=== PATIENT | female | born 1940 | race Caucasian/White ===

== ENCOUNTER 2017-04-02 05:59 | Inpatient (IN) | payer MEDICARE, OTHER ==
[2017-04-02] MEDS ORDERED: TRANEXAMIC ACID 1,000 MG in NORMAL SALINE 100 ML IV PRN (06:00)
[2017-04-02] MEDS ORDERED: MORPHINE SULFATE 15 MG TABLET.SA PO PRN (06:00)
[2017-04-02] MEDS ORDERED: RINGER'S SOLUTION,LACTATED 1,000 ML IV PRN (06:00)
[2017-04-02] MEDS ORDERED: ceFAZolin SODIUM 1 GM VIAL IV PRN (06:00)
[2017-04-02] MEDS ORDERED: ROPIVACAINE HCL/PF 100 MG, KETOROLAC TROMETHAMINE 30 MG, EPINEPHrine 0.2 MG in NORMAL S... IJ PRN (06:00)
[2017-04-02] MEDS ORDERED: RINGER'S SOLUTION,LACTATED 1,000 ML IV ONE ×3 (07:40→09:05)
[2017-04-02] MEDS ORDERED: MAGNESIUM HYDROXIDE 30 ML UDC PO PRN (09:58)
[2017-04-02] MEDS ORDERED: ACETAMINOPHEN 500 MG TABLET PO PRN (09:58)
[2017-04-02] MEDS ORDERED: MAG HYDROX/ALUMINUM HYD/SIMETH 30 ML UDC PO PRN (09:58)
[2017-04-02] MEDS ORDERED: ONDANSETRON HCL/PF 2 MG/ML VIAL IV PRN (09:58)
[2017-04-02] MEDS ORDERED: diphenhydrAMINE HCL 50 MG/ML VIAL IV PRN (09:58)
[2017-04-02] MEDS ORDERED: ZOLPIDEM TARTRATE 5 MG TABLET PO PRN (09:58)
[2017-04-02] MEDS ORDERED: HYDROmorphone HCL 1 MG/ML DISP.SYRIN IV PRN (09:58)
[2017-04-02] MEDS ORDERED: ALBUTEROL SULFATE/IPRATROPIUM 3 ML NEBU IH PRN (10:02)
[2017-04-02] MEDS ORDERED: ALPRAZolam 0.25 MG TABLET PO PRN (10:02)
[2017-04-02] MEDS ORDERED: TEMAZEPAM 15 MG CAPSULE PO PRN (10:02)
--- NOTE | 2017-04-02 10:05 | POSTOP NO ---
Date of Surgery: 04/02/17 Anesthesia: Spinal, regional, local Patient Tolerated the Procedure: Well Post Operative Diagnosis/Procedures: Metal Handler: Sabino Michael PA-C Post-operative Diagnosis: Right knee degenerative joint disease Finding: Above Procedure: Right total knee arthroplasty Estimated Blood Loss: Minimal Specimens: Bone for disposal
--- NOTE | 2017-04-02 10:06 | OR ---
Operative Report - Dictated Report Narrative: Date: 04/02/2017 Preoperative diagnosis: Right Knee degenerative joint disease. Postoperative diagnosis: Right Knee degenerative joint disease. Procedure: Right Total knee arthroplasty. Surgeon: Oz Rodgers M.D. Youth Development Professional: Sabino Michael PA-C Anesthesia: Spinal with regional block and local periarticular joint injection. Complications: None Specimens: Bone for disposal. Estimated blood loss: Minimal. Tourniquet time: 90 Minutes at 325 millimeters of mercury. Retained implants: Depuy Attune size 6 narrow right lugged cemented posterior stabilized femoral component. Size 6 fixed-bearing cemented tibial platform. 6 by 5 millimeter posterior stabilized cross-linked tibial insert. 38 millimeter medialized patella button. Indications: Mrs. Ramirez is a 76-year-old female who has had long-standing right knee pain and arthrosis. This patient was followed in my clinic for period of time with significant complaints of right knee pain consistent with arthritic changes. She had failed conservative measures including, but not limited to, activity modification, passage of time, medications, and other conservative measures. Patient wished to proceed with surgical treatment. The risks, benefits, and alternatives were discussed in clinic. The risks of , blood clots, bleeding, infection, nerve/tendon blood vessel/ injury, malposition of components, intraoperative fracture, postoperative limited range of motion, persistent pain, failure of components, and need for additional procedures. Patient wished to proceed consent was obtained after answering all questions. Procedure: After marking the correct extremity on the floor, the patient was taken to the operating room. A timeout was performed. IV antibiotics consisting of Ancef were administered prior to the procedure. A regional followed by spinal anesthetic was induced by anesthesia, per my request, on the operative table with all bony prominences well-padded. Dahl catheter was placed, and a bump was placed under the operative side buttock. SCDs and LOUANN hose were utilized on the nonoperative leg. A well-padded tourniquet was applied to the operative thigh. The operative leg was then pre-scrubbed with alcohol prepped, and draped in a standard sterile fashion. After exsanguinating the extremity with an Esmarch bandage, the tourniquet was inflated. After marking out the anterior knee for standard incision centered over the patella, the skin was incised and dissected down to the joint retinaculum. The joint retinaculum was marked out as well as the horizontal axis of the patella, and a standard medial parapatellar arthrotomy was then made. The most proximal aspect of the quadriceps tendon and the patella tendon insertion were protected from release. A partial synovectomy was performed as well as a resection of the infrapatellar fat pad. The distal femoral fat pad proximal to the trochlea was also resected using cautery. The soft tissues were elevated off the medial aspect of the proximal tibia using a Isaac elevator ensuring that we did not transect the medial collateral ligament. Upon initial evaluation range of motion was approximately 0 degrees to 120 degrees of flexion. There were signs of advanced arthrosis in the medial and patellofemoral joint spaces. There were large marginal osteophytes which were removed with a rongeur. The knee was hyperflexed and the patella was tucked laterally. Protecting the surrounding soft tissues with Homans, an entry drill was placed down the femoral canal using Whitesides line for guidance into the entry point. The intramedullary femoral alignment chad was utilized in order to cut the distal femur in 5 degrees of valgus resecting 10 millimeters of bone. Next the distal femur was sized to a size 6. A posterior referencing guide was utilized to place the distal femoral cutting block in 3 degrees of external rotation. This was pinned into place. The rotation was confirmed both visually and based on anatomic landmarks. The 4 in 1 cutting jig of the appropriate size was utilized in order to make all bony cuts. The angle wing was used to ensure no notching. Retractors were utilized in order to protect surrounding soft tissues. This cut did not result in any excessive notching. We then cut the box centered over the distal femur. This allowed for resection of the anterior and posterior cruciate ligaments. I then turned my attention to the preparation of the tibia. Using an extra medullary tibial alignment chad, 2 millimeters of bone was resected off the medial articular surface. This was made perpendicular to the mechanical axis of the joint with the alignment chad centered over the ankle mortise. The alignment chad was checked and was noted to be parallel to the mechanical axis, centered over the medial one third of the tibial tubercle, paralleling the anterior surface of the tibia. We then turned our attention to the remaining meniscus and soft tissues. These were removed while protecting the surrounding ligaments and soft tissues. The marginal osteophytes off the anterior, posterior, medial, lateral aspects of the femur and tibia were removed. The tibia was sized out to a size 6. Next the tibia was drilled and punched in an externally rotated position. Next the trial femur and a series of tibial inserts were utilized in order to allow for full extension and maximal flexion. It was found that a 5 millimeter insert gave the best range of motion and stability at multiple flexion points as well as at full extension there was less than 2 mm of gapping both medially and laterally. There is minimal anterior translation with the knee at 90 degrees of flexion and no signs of being able to dislocate the knee. The patella was then prepared. The initial thickness was 21 millimeters. This was reamed down to 12 millimeters parallel to the anterior surface of the patella. It was sized out to a size 38 medialized patella button. This was then drilled and trialed. Without any medial restraint the patella tracked appropriately and did not sublux or dislocate. At this point, it was felt these were the appropriate sized implants, and all trials were removed. The standard periarticular joint injection consisting of ropivacaine, Toradol, and epinephrine were injected into the periarticular joint tissues. The bony surfaces were thoroughly irrigated with a pulsatile- suction saline irrigation device. A bone plug from the prior resected anterior chamfer cut was placed into the drill hole at the distal femur. The bony surfaces were then dried in preparation for placement of the implants. The cement was vacuum mixed per the lace roller operator's instructions. The cement was placed on the dry bony surfaces and posterior aspect of the implants. The implants were impacted into place, removing all extruded cement. At this point anesthesia administered tranexamic acid per protocol intravenously. The knee was placed in extension with axial loading with the trial insert while the cement cured. Once the cement cured, all remaining extruded cement was removed. The knee was placed through a range of motion with the trial insert to ensure appropriate range of motion and stability. Final range of motion was approximately 0 to 120 degrees. The knee was again thoroughly irrigated with pulsatile saline lavage. The final polyethylene insert was then impacted into place ensuring no retained soft tissues. The remaining periarticular joint injection was injected. A medium Hemovac drain was placed exiting superior laterally. The knee was then placed over a triangle and the arthrotomy was closed with interrupted #1 Vicryl after thoroughly irrigating the joint. The deep and subcutaneous tissues were closed with interrupted 0 and 3-0 Vicryl respectively. Skin was closed with a running subcutaneous 3-0 Monocryl and Prineo Dermabond dressing. 4 x 4's, Sof-Rol, and a full leg Suleiman wrap were applied. All sponge, needle, blade, and instrument counts were correct prior to closing the wounds. Postoperative condition: The patient was awoken and transferred to the postanesthesia care unit in stable condition. Plan is to be admitted to the inpatient medical/surgical floor postoperatively for 24 hours of IV antibiotics , physical therapy, occupational therapy, and medical comanagement. Patient will be weightbearing as tolerated with range of motion as tolerated. DVT prophylaxis will be with SCDs, LOUANN hose, and pharmacological anticoagulation. Anticipated hospital stay is approximately 2-4 days.
--- NOTE | 2017-04-02 10:20 | OR ---
Anesthesia Procedure Note - Anesthesia Procedure Note Date of Service: 04/02/17 Narrative: Vital Signs - Last Taken Temp 36.3 C L 04/02/17 10:15 Pulse 72 04/02/17 10:15 Resp 16 04/02/17 10:15 BP 138/47 04/02/17 10:15 Pulse Ox 95 04/02/17 10:15 O2 Oxygen Delivery Method Room Air 04/02/17 10:19 ANESTHESIA PROCEDURE NOTE Date of Procedure: 04/02/2017. Time of procedure: 739. Performed by: Braden Anaya CRNA [place] Examiner: None. Preprocedure diagnosis: Degenerative joint disease right knee. Post procedure diagnosis: Same. Procedure: Right ultrasound guided femoral block for postoperative analgesia. Indications: The patient is a 76 -year-old female, who is requesting right ultrasound-guided femoral nerve block for postoperative analgesia related to right total knee arthroplasty. Findings: See below. Details of the procedure: The tissue over the intended target site was cleansed with ChloraPrep. 1 ml Lidocaine 1 % was infiltrated to the skin and subcutaneous tissue. Under sterile technique and ultrasound guidance a 21-gauge block needle was inserted anterior to the right femoral nerve . 20 mL's of 0.5 % bupivacaine was injected after negative aspiration for blood. Needle tip and spread of local anesthetic surrounding the femoral nerve was observed throughout the injection with realtime ultrasound visualization. The needle was removed intact. No complications were noted. The images were retained in the Hospital medical database . EBL: Minimal. Fluids: N/A. Specimen: N/A. Post procedure condition: The patient tolerated the procedure well. No complications were noted. Thank you for this consultation. Braden Anaya CRNA
[2017-04-02] MEDS: DEXTROSE 5%-LACTATED RINGERS 1,000 ML IV PRN ×2 (10:53→19:14)
[2017-04-02] MEDS: KETOROLAC TROMETHAMINE 15 MG/ML VIAL IV SCH ×3 (10:54→22:44)
[2017-04-02] MEDS: DILTIAZEM HCL 60 MG TABLET PO SCH ×2 (13:47→20:10)
[2017-04-02] MEDS: FLUoxetine HCL 20 MG CAPSULE PO SCH ×2 (13:47→17:14)
[2017-04-02] MEDS: FUROSEMIDE 40 MG TABLET PO SCH (17:14)
[2017-04-02] MEDS: oxyCODONE HCL/ACETAMINOPHEN 1 TAB TABLET PO PRN ×2 (17:14→21:52)
[2017-04-02] MEDS: ALBUTEROL SULFATE 2.5 MG/0.5 ML VIAL.NEB IH SCH (19:31)
[2017-04-02] MEDS: PANTOPRAZOLE SODIUM 40 MG TABLET.EC PO SCH (20:10)
[2017-04-02] MEDS: rOPINIRole HCL 1 MG TABLET PO SCH (20:10)
[2017-04-02] MEDS: MORPHINE SULFATE 15 MG TABLET.SA PO SCH (20:10)
[2017-04-02] MEDS: SENNOSIDES/DOCUSATE SODIUM 1 TAB TABLET PO SCH (20:11)
[2017-04-02] MEDS: SIMVASTATIN 40 MG TABLET PO SCH (20:11)
[2017-04-02] MEDS: MONTELUKAST SODIUM 10 MG TABLET PO SCH (20:11)
[2017-04-03] MEDS: KETOROLAC TROMETHAMINE 15 MG/ML VIAL IV SCH ×4 (04:04→23:06)
[2017-04-03 06:09] LABS: Hemoglobin 10.4 gm/dL (12.5-16.0); Mean Cell Volume 90.1 fl (78-100); Mean Corpuscular Hemoglobin 30.2 pg (27-31); Mean Corpuscular Hgb Conc 33.5 g/dl (32-36); Mean Platelet Volume 10.2 fl (6.0-9.5); Platelet Count 241 K/mm3 (150-450); Red Blood Count 3.44 M/mm3 (4.2-5.4); Red Cell Distribution Width 13.4 % (11.5-14.0); White Blood Count 7.8 K/mm3 (4.0-10.5)
[2017-04-03 06:17] LABS: Anion Gap 10.3 mmol/L (6.8-13.8); BUN/Creatinine Ratio 16.5 (9.0-21.6); Calcium * 8.5 mg/dL (7.9-10.9); Carbon Dioxide 28.8 mmol/L (24-32.6); Estimated Creat Clear 45.2; Potassium 4.1 mmol/L (3.4-4.6)
[2017-04-03] MEDS: ALBUTEROL SULFATE 2.5 MG/0.5 ML VIAL.NEB IH SCH ×2 (06:27→18:05)
[2017-04-03] MEDS: DILTIAZEM HCL 60 MG TABLET PO SCH ×3 (07:31→20:26)
[2017-04-03] MEDS: PANTOPRAZOLE SODIUM 40 MG TABLET.EC PO SCH ×2 (07:33→20:25)
--- NOTE | 2017-04-03 08:07 | PN ---
Subjective - Date and Time Seen Date: 04/03/17 Time: 08:04 Subjective Narrative: Subjective: Reports difficulty sleeping but not related to pain. Was able to get up to the chair with therapy. Pain is well-controlled. Tolerating by mouth intake. Denies any nausea or vomiting. Denies calf pain. Physical exam: Alert and oriented to person, place and time Right lower Extremity: Palpable dorsalis pedis pulse. Sensation grossly intact to light touch. Dressings clean and dry. Able to flex and extend ankle and toes. No excessive drainage. Calf and thigh are soft and nontender. Assessment: Postop day 1 status post right total knee arthroplasty. Plan: Due to the need for pain control, post-operative limited mobility, protection of the surgical site and joint, monitoring of the wound, and the management of chronic medical conditions, she requires continued inpatient care. Continue with physical and occupational therapy weightbearing as tolerated. Continue with anticoagulation. 24 hours postoperative prophylactic antibiotics. Pain control with goal to rely on oral medications. Continue bowel regimen. Will need 6 weeks with walker or assitive device to protect joint while ambulating during the recovery process. Discharge planning. Discontinue drain and Dahl catheter. Repeat hemogram and BMP in a.m. in order to monitor for postoperative anemia and electrolyte imbalance. Objective - Vitals Vitals: Last Vital Signs Temp 36.7 C 04/03/17 06:30 Pulse 72 04/03/17 07:31 Resp 18 04/03/17 06:30 BP 153/60 04/03/17 07:31 Pulse Ox 100 04/03/17 06:30 - Abnormal Lab Findings Abnormal Lab Findings: Abnormal Lab Results 04/03/17 Range/Units 05:35 RBC 3.44 L (4.2-5.4) M/mm3 Hgb 10.4 L (12.5-16.0) gm/dL Hct 31.0 L (37.0-47.0) % MPV 10.2 H (6.0-9.5) fl Cauti Physician Documentation - Urinary Catheter Management Urethral (Dahl) Urethral Indwelling: Yes Reason for Continuing Indwelling Catheter: Surgical Procedure Date of Insertion: 04/02/17 Time of Insertion: 08:10 Assessment/Plan - Problems/Diagnosis (1) Acute blood loss anemia Problem: Acute (2) Status post total right knee replacement Problem: Acute (3) Anxiety Problem: Chronic (4) Depression Problem: Chronic (5) Hypertension Problem: Chronic (6) Restless leg syndrome Problem: Chronic
[2017-04-03] MEDS: ENOXAPARIN SODIUM 40 MG/0.4 ML SYRG SC SCH (08:40)
[2017-04-03] MEDS: FLUoxetine HCL 20 MG CAPSULE PO SCH ×3 (08:41→17:20)
[2017-04-03] MEDS: OMEGA-3 FATTY ACIDS 1 CAP CAPSULE PO SCH (08:42)
[2017-04-03] MEDS: ISOSORBIDE MONONITRATE 30 MG TAB.SR.24H PO SCH (08:42)
[2017-04-03] MEDS: LOSARTAN POTASSIUM 50 MG TABLET PO SCH (08:43)
[2017-04-03] MEDS: MULTIVITAMINS 1 CAP CAPSULE PO SCH (08:44)
[2017-04-03] MEDS: FUROSEMIDE 40 MG TABLET PO SCH ×2 (08:44→17:20)
[2017-04-03] MEDS: POLYETHYLENE GLYCOL 3350 119 GM BTL PO SCH (08:44)
[2017-04-03] MEDS: MORPHINE SULFATE 15 MG TABLET.SA PO SCH ×2 (08:48→20:25)
[2017-04-03] MEDS: MONTELUKAST SODIUM 10 MG TABLET PO SCH (20:26)
[2017-04-03] MEDS: SENNOSIDES/DOCUSATE SODIUM 1 TAB TABLET PO SCH (20:26)
[2017-04-03] MEDS: rOPINIRole HCL 1 MG TABLET PO SCH (20:26)
[2017-04-03] MEDS: SIMVASTATIN 40 MG TABLET PO SCH (20:27)
[2017-04-04] MEDS: KETOROLAC TROMETHAMINE 15 MG/ML VIAL IV SCH (04:57)
[2017-04-04 05:51] LABS: Hemoglobin 10.7 gm/dL (12.5-16.0); Mean Cell Volume 88.3 fl (78-100); Mean Corpuscular Hemoglobin 30.5 pg (27-31); Mean Corpuscular Hgb Conc 34.5 g/dl (32-36); Mean Platelet Volume 10.1 fl (6.0-9.5); Platelet Count 209 K/mm3 (150-450); Red Blood Count 3.51 M/mm3 (4.2-5.4); Red Cell Distribution Width 12.8 % (11.5-14.0); White Blood Count 8.2 K/mm3 (4.0-10.5)
[2017-04-04 06:03] LABS: Anion Gap 9.5 mmol/L (6.8-13.8); BUN/Creatinine Ratio 16.7 (9.0-21.6); Calcium * 8.2 mg/dL (7.9-10.9); Carbon Dioxide 29.4 mmol/L (24-32.6); Estimated Creat Clear 53.4; Potassium 3.9 mmol/L (3.4-4.6)
[2017-04-04] MEDS: ALBUTEROL SULFATE 2.5 MG/0.5 ML VIAL.NEB IH SCH (06:27)
[2017-04-04] MEDS: PANTOPRAZOLE SODIUM 40 MG TABLET.EC PO SCH (06:58)
[2017-04-04 07:13] VITALS: BP 136/54
[2017-04-04] MEDS: DILTIAZEM HCL 60 MG TABLET PO SCH (07:14)
[2017-04-04] MEDS: ENOXAPARIN SODIUM 40 MG/0.4 ML SYRG SC SCH (08:27)
[2017-04-04] MEDS: FLUoxetine HCL 20 MG CAPSULE PO SCH ×2 (08:29→13:03)
[2017-04-04] MEDS: FUROSEMIDE 40 MG TABLET PO SCH (08:29)
[2017-04-04] MEDS: MULTIVITAMINS 1 CAP CAPSULE PO SCH (08:29)
[2017-04-04] MEDS: LOSARTAN POTASSIUM 50 MG TABLET PO SCH (08:29)
[2017-04-04] MEDS: ISOSORBIDE MONONITRATE 30 MG TAB.SR.24H PO SCH (08:29)
[2017-04-04] MEDS: OMEGA-3 FATTY ACIDS 1 CAP CAPSULE PO SCH (08:29)
[2017-04-04] MEDS: POLYETHYLENE GLYCOL 3350 119 GM BTL PO SCH (08:31)
[2017-04-04] MEDS: MORPHINE SULFATE 15 MG TABLET.SA PO SCH (08:33)
--- NOTE | 2017-04-04 12:29 | DS ---
(1) Acute blood loss anemia Problem: Acute (2) Status post total right knee replacement Problem: Acute (3) Anxiety Problem: Chronic (4) Depression Problem: Chronic (5) Hypertension Problem: Chronic (6) Restless leg syndrome Problem: Chronic Description of Stay: Mrs. Palacios was admitted to the floor after undergoing right total knee arthroplasty. Tolerated this well. Was admitted to the floor postoperatively for 24 hours of IV antibiotics, pain control, medical comanagement, and occupational and physical therapy. OT and PT were consulted to assist with activities of daily living and ambulation. Was made weightbearing as tolerated with range of motion as tolerated. Pain was initially controlled with IV regimen. This was transitioned to oral once tolerating a by mouth intake. Was resumed on home diet and medications. Had a Dahl catheter inserted and the operating room which was discontinued on postoperative day 1. A drain was placed intraoperatively into the knee which was discontinued on postoperative day 1. Lovenox SCD and LOUANN hose were utilized for DVT prophylaxis. Vital signs remained stable to the hospital course. Serial labs were obtained which showed a final hemoglobin of 10.7 grams. BMP was reviewed and was stable. Physical examination throughout the hospital course showed an extremity that had sensation that was intact to light touch, palpable pulses, a benign wound, motor intact to the toes, ankle, and knee. Knee range of motion was approximately 0 degrees to 70 degrees. she does report some mechanical central sternal pain after getting up with therapy the first time it was not related to exertion and had no radiating symptoms and was tender along the left parasternal region consistent with suspected sternal strain versus chondral injury. She displayed no signs of acute chest pain consistent with cardiac event. Once an oral pain regimen was tolerated and physical therapy goals were met, it was felt that they were stable for discharge to home. Instructions: Continue with weightbearing as tolerated and range of motion as tolerated. It is okay to shower and get the wound wet as long as there is no drainage from the wound. Do not bathe or soak the wound. If there is any drainage from the wound keep the wound clean and dry and cover with dry gauze and tape. Change every 2-3 days as needed if there is any drainage. Cover wound while showering if there is any drainage. Continue with physical therapy. Resume home diet. Report any fever over 101.5 Fahrenheit, uncontrolled pain, increased drainage, foul odor of drainage, new or increased calf pain or shortness of breath, or any other significant complaints. Due to her history of DVT she was placed Xarelto daily for 30 days. Continue with LOUANN hose on the operative extremity until instructed otherwise. No driving until instructed otherwise. Follow up in approximately 10-14 days. Procedures Performed: see notes below List Procedures: Right total knee arthroplasty Discharge Disposition: Home self care Disposition: Home self-care Condition: Good Discharge Activity: Activity as tolerated, Weight bearing Discharge Diet: General/regular food Referrals: Tomi Hanson DO [Primary Care Provider] - Additional Patient Instructions (free text): Follow-up in the office with Dr. Rodgers on 04-17-17 at 9:45am. Prescriptions (Any new or edited meds): Morphine Sulfate [Ms Contin] 15 mg PO Q12H #30 tablet.sa oxyCODONE HCL/ACETAMINOPHEN [Percocet 5 MG/325 MG] 2 tab PO Q4H PRN #90 tablet PRN Reason: Moderate Pain Rivaroxaban [Xarelto] 10 mg PO DAILY #30 tab Sennosides/Docusate Sodium [Senokot-S] 2 tab PO HS #30 tablet Complete Home Medications List: Complete Home Medication List: ALPRAZolam [Xanax] 0.25 mg PO BID PRN 03/12/17 Albuterol Sulfate [Ventolin HFA] 2 puff IH BID 03/12/17 Albuterol Sulfate/Ipratropium [Duoneb 2.5-0.5MG/3ML Soln] 3 ml IH QID PRN Diltiazem HCl [Cardizem] 60 mg PO TID 03/12/17 FLUoxetine HCL [Prozac] 20 mg PO TID 03/12/17 Furosemide [Lasix] 40 mg PO BID 03/12/17 Isosorbide Mononitrate [Imdur] 30 mg PO DAILY 03/12/17 Losartan Potassium [Cozaar] 50 mg PO DAILY 03/12/17 Montelukast Sodium [Singulair] 10 mg PO HS 03/12/17 Multivitamins [Multivitamin Mary] 1 cap PO DAILY 03/12/17 Pantoprazole Sodium [Protonix] 40 mg PO BID 03/12/17 Simvastatin [Zocor] 40 mg PO HS 03/12/17 Temazepam 30 mg PO HS PRN 03/12/17 rOPINIRole HCL [Requip] 1 mg PO HS 03/12/17 [place]-3 Fatty Acids/Fish Oil [Fish Oil 1,000 mg Capsule] 2 each PO DAILY Polyethylene Glycol 3350 [Miralax] 17 gm PO DAILY 04/02/17 Morphine Sulfate [Ms Contin] 15 mg PO Q12H #30 tablet.sa 04/04/17 Rivaroxaban [Xarelto] 10 mg PO DAILY #30 tab 04/04/17 Sennosides/Docusate Sodium [Senokot-S] 2 tab PO HS #30 tablet 04/04/17 oxyCODONE HCL/ACETAMINOPHEN [Percocet 5 MG/325 MG] 2 tab PO Q4H PRN #90 tablet 04/04/17 Amb Orders for Discharge: PT Evaluation and Treatment Facility: [facility], Location: Rehabilitation Services
[2017-04-04] MEDS: oxyCODONE HCL/ACETAMINOPHEN 1 TAB TABLET PO PRN (13:02)
== END 2017-04-04 13:30 | disposition home or self-care (01) | DRG 470 ==
LOC: MS 05:59
PROVIDERS: ADMIT Orthopaedic Surgery; ATTEND Orthopaedic Surgery
PROC: 0SRC0J9 Replacement of Right Knee Joint with Synthetic Substitute, Cemented, Open Approach (ICD-10-PCS; principal; 2017-04-02 08:00)
DX: M17.11 Unilateral primary osteoarthritis, right knee (principal); D62 Acute posthemorrhagic anemia; I10 Essential (primary) hypertension; E11.9 Type 2 diabetes mellitus without complications; J44.9 Chronic obstructive pulmonary disease, unspecified; I25.10 Atherosclerotic heart disease of native coronary artery without angina pectoris; G25.81 Restless legs syndrome; F41.9 Anxiety disorder, unspecified